=== PATIENT | male | born 1980 | race Hispanic/Latino ===

== ENCOUNTER 2019-03-19 15:26 | Emergency (ER) | payer OTHER ==
[~2019-03-19] VITALS: Ht 185.4 cm; Wt 108.9 kg
[2019-03-19 15:45] VITALS: BP 134/71
--- NOTE | 2019-03-19 15:48 | NUR ---
ARRIVAL PATIENT ARRIVED TO [facility] VIA W/C, C/O OF LEFT ANKLE INJURY FOR THE PAST 2 DAYS, PATIENT STATES HE WAS COMING DOWN THE STAIR AND LOST HE BALANCE ATTEMPTED TO CATCH HIMSELF BUT TWISTED HIS LEFT ANKLE. LIMITED RANGE OF MOTION. HERE FOR XRAY AND FURTHER EVAL.
--- NOTE | 2019-03-19 16:09 | DIREP ---
PROCEDURE:XRAY ANKLE MIN 3VWS-LT COMPARISON:None. INDICATIONS:[ain from twisting it FINDINGS: BONES:Normal. JOINTS:Normal. SOFT TISSUES:Normal, except for mild soft tissue swelling. OTHER:No additional findings. CONCLUSION:No fracture or subluxation. Dictated by: Darci Easley M.D. on 03/19/2019 at 04:08 PM
--- NOTE | 2019-03-19 16:27 | ER.PDOC ---
General Chief Complaint: Extremities Stated Complaint: FALL,LEFT ANKLE INJURY Time seen by MD: 16:25 Source: patient Exam Limitations: no limitations History of Present Illness Initial Comments Left ankle pain Onset: just prior to arrival Where: home Severity: moderate Context: twist Modifying Factors: pain on movement Past Medical History Medical History: no pertinent history Surgical History: no surgical history Social History Smoking: non-smoker Alcohol Use: occassionally Drug Use: none Review of Systems Constitutional: no symptoms reported EENTM: no symptoms reported Respiratory: no symptoms reported Cardiovascular: no symptoms reported Musculoskeletal: see HPI All Other Systems: Reviewed and Negative Physical Exam General Appearance: Alert, No Apparent Distress Foot: nml inspection, non-tender Ankle: tenderness (left ankle), swelling, ecchymosis Gait: unable to bear weight Neuro: sensation nml, motor nml Vascular: no vascular compromise Tendons: tendon function nml Leg/Knee/Thigh: uninjured above ankle Head/ENT: nml inspection, pharynx nml Neck/Back: nml inspection, non-tender Resp/CVS: no resp distress Abdomen: non-tender, no organomegaly Results/Orders Results/Orders Orders - LONI WELLINGTON MD Xr Ankle 3v Lt (03/19/19 15:41) Vital Signs Date Time Temp Pulse Resp B/P (MAP) Pulse Ox O2 Delivery O2 Flow Rate FiO2 03/19/19 15:45 98.1 90 18 134/71 (92) 91 Room Air 98.1 03/19/19 15:42 98.1 90 18 91 Room Air 98.1 03/19/19 15:41 98.5 90 18 98.5 EKG/XRAY/CT/US XRAY Comments: No fracture left ankle Departure Time of Disposition: 16:26 Disposition: 01 HOME, SELF-CARE Impression: Primary Impression: Left ankle injury Condition: Stable Referrals: PCP,UNKNOWN (PCP) PRIMARY CARE PROVIDER Additional Instructions: Ice Ibuprofen Tramadol F/U with PCP next week Patient to be off work until 03/22/19 when he follow up with Dr. Pizano. Duration or Time Spent with Pa: 45 mins Problem Qualifiers Primary Impression: Left ankle injury Encounter type: initial encounter Qualified Codes: S99.912A - Unspecified injury of left ankle, initial encounter LONI WELLINGTON MD Mar 19, 2019 16:27
[2019-03-19 16:48] VITALS: BP 132/71
== END 2019-03-19 16:50 | disposition home or self-care (01) ==
LOC: EDBD 15:26 → ER 15:26
DX: S90.02XA Contusion of left ankle, initial encounter (principal); X50.9XXA Other and unspecified overexertion or strenuous movements or postures, initial encounter; Y93.89 Activity, other specified; Y92.098 Other place in other non-institutional residence as the place of occurrence of the external cause; Y99.8 Other external cause status
CPT/HCPCS: 99284; 73610-LT